=== PATIENT | male | born 1960 | race Caucasian/White ===

== ENCOUNTER 2019-08-31 13:36 | Inpatient (IN) | payer BC, MEDICAID ==
[~2019-08-31] VITALS: Ht 180.3 cm; Wt 70.0 kg
[2019-08-31 14:53] VITALS: Ht 180.3 cm; Wt 70.0 kg
--- NOTE | 2019-08-31 15:04 | NUR ---
59 YEAR OLD MALE PRESENTS WITH NAUSEA, NON BLOODY VOMITING AND DIARRHEA X 2 DAYS. PT REPORTS HE DRANK ETOH ON SATURDAY NIGHT AND FELT HIS SYMPTOMS THE NEXT DAY. HE REPORTS HE HAS BEEN NONCOMPLIANT WITH HIS DM MEDICATIONS FOR WEEKS. PT CURRENTLY DENIES ANY ABDOMINAL PAIN. PT IS CURRENTLY TACHYPNEIC AND ANXIOUS. HE IS AAOX4 AND IN MILD DISTRESS.
[2019-08-31 15:13] LABS: BASOPHIL % 0.1 % (0-2); PLATELET COUNT 236 x10^3mcL (130-400); RED CELL DISTRIBUTION WIDTH 13.6 % (11.5-14.5)
[2019-08-31 15:31] LABS: ALKALINE PHOSPHATASE 55 U/L (46-116); ALT/SGPT 39 U/L (16-63); AST/SGOT 12 U/L (15-37); BILIRUBIN TOTAL 1.2 mg/dL (0.20-1.00); CARBON DIOXIDE 12.9 mmol/L (21-32); CHLORIDE SERUM 97 mmol/L (98-107); GFR1 > 60 mL/min; GLUCOSE SERUM 234 mg/dL (74-106); LIPASE 88 IU/L (73-393); SODIUM SERUM 137 mmol/L (136-145); TOTAL PROTEIN, SERUM 8.1 g/dL (6.4-8.2)
[2019-08-31 15:35] LABS: CALCIUM 9.6 mg/dL (8.5-10.1)
[2019-08-31 16:31] LABS: MAGNESIUM 2.1 mg/dL (1.8-2.4); PHOSPHOROUS 3.3 mg/dL (2.5-4.9)
--- NOTE | 2019-08-31 16:39 | NUR ---
PT TAKEN TO CT VIA RKEVIN.
[2019-08-31 17:34] LABS: UA SPECIFIC GRAVITY 1.025 (1.005-1.035); microscopic required? YES; urine erythrocyte TRACE (NEGATIVE)
--- NOTE | 2019-08-31 17:37 | NUR ---
CALLED PHARMACY FOR POTASSIUM PHOSPHATE. ETA 15 MINS
--- NOTE | 2019-08-31 18:27 | NUR ---
REPORT GIVEN TO CHARGE NURSE LORIN. ICU TO ASSUME CARE OF PATIENT
[2019-08-31] MEDS ORDERED: STEGLATRO5 MG PO (18:47)
[2019-08-31] MEDS ORDERED: FORTAMET500 M1 PO (18:47)
[2019-08-31 18:48] LABS: CHOLESTEROL/HDL RATIO 3.7
[2019-08-31 19:01] LABS: AMPHETAMINE QUAL UR NONE DETECTED (See below)
--- NOTE | 2019-08-31 20:00 | NUR ---
RECEIVED PT FROM ER VIA RLAKE HARMONY WITH NURSE AT BEDSIDE. PT IS AWAKE, ALERT, ORIENTED X4. SPEECH CLEAR. ABLE TO MAKE NEEDS KNOWN. DENIES PAIN OR DISCOMFORT. CHIEF C/O N/V/D WITH ELEVATED BS. KPHOS INFUSING AT THIS TIME AT 45ML/HR TO LAC. HISTORY ASSESSMENT OBTAINED FROM PT. ORIENTED PT TO ROOM AND SURROUNDINGS. LUNG SOUNDS CLEAR. NO RESPIRATORY DISTRESS NOTED. PT STATES HE IS A LITTLE ANXIOUS ABOUT HOSPITILAZTION, BUT BREATHING EASILY ON ROOM AIR. INTIAL ASSESSMENT COMPLETED. INSTRUCTED PT TO USE CALL LIGHT IF NEEDED. WILL CARRY OUT ALL NEW ORDERS AT THIS TIME.
[2019-08-31 20:02] LABS: CALCIUM 8.4 mg/dL (8.5-10.1); CARBON DIOXIDE 13.4 mmol/L (21-32); CHLORIDE SERUM 104 mmol/L (98-107); CREATININE SERUM 0.8 mg/dL (0.7-1.3); GFR1 > 60 mL/min; GLUCOSE SERUM 163 mg/dL (74-106); MAGNESIUM 1.9 mg/dL (1.8-2.4); PHOSPHOROUS 4.8 mg/dL (2.5-4.9); POTASSIUM SERUM 3.9 mmol/L (3.5-5.1); SODIUM SERUM 138 mmol/L (136-145)
[2019-08-31 20:40] VITALS: BP 125/63
--- NOTE | 2019-08-31 21:30 | NUR ---
NEW IV PLACED TO LFA, 20G FOR D5 1/2 NS AND INSULIN DRIP. D5 1/2 NS INFUSING AT 250ML/HR AND INSULIN DRIP STARTED AT 0.05 UNITS/KG/HR; 3.5 UNITS/HR. LAST BS IS 124. WILL CONTINUE TO MONITOR CLOSELY.
--- NOTE | 2019-08-31 23:30 | NUR ---
PT C/O NAUSEA, MEDICATED WITH ZOFRAN ORDERED. LATEST BS IS 106. INSULIN 3.5UNITS/HR. D5 1/2 NS AT 250ML/HR. KPHOS INFUSING AT 45ML/HR. EMPTIED 700 ML IN URINAL, YELLOW CLEAR. ALL NEEDS TENDED TO. WILL CONTINUE TO MONITOR CLOSELY.
[2019-09-01] VITALS (7 sets, daily range): BP systolic 104–121; BP diastolic 47–73
[2019-09-01 01:38] LABS: CALCIUM 7.6 mg/dL (8.5-10.1); CARBON DIOXIDE 15.7 mmol/L (21-32); CHLORIDE SERUM 107 mmol/L (98-107); CREATININE SERUM 0.7 mg/dL (0.7-1.3); GFR1 > 60 mL/min; GLUCOSE SERUM 131 mg/dL (74-106); MAGNESIUM 1.8 mg/dL (1.8-2.4); PHOSPHOROUS 4.4 mg/dL (2.5-4.9); POTASSIUM SERUM 3.5 mmol/L (3.5-5.1); SODIUM SERUM 138 mmol/L (136-145)
--- NOTE | 2019-09-01 02:55 | NUR ---
PT SLEEPING IN INTERVALS. BS CHECKS CONTINUE Q1H. IVF ONGOING AND UNCHANGED. ALL NEEDS TENDED TO. WILL CONTINUE TO MONITOR CLOSELY.
--- NOTE | 2019-09-01 03:35 | NUR ---
PT C/O NAUSEA, ZOFRAN GIVEN AT THIS TIME. SHIFT ASSESSMENT COMPLETED. ALL NEEDS TENDED TO. WILL CONTINUE TO MONITOR CLOSELY.
[2019-09-01 05:45] LABS: CALCIUM 7.5 mg/dL (8.5-10.1); CARBON DIOXIDE 19.2 mmol/L (21-32); CHLORIDE SERUM 106 mmol/L (98-107); CREATININE SERUM 0.6 mg/dL (0.7-1.3); GFR1 > 60 mL/min; GLUCOSE SERUM 134 mg/dL (74-106); MAGNESIUM 1.8 mg/dL (1.8-2.4); PHOSPHOROUS 2.9 mg/dL (2.5-4.9); POTASSIUM SERUM 3.1 mmol/L (3.5-5.1); SODIUM SERUM 137 mmol/L (136-145)
--- NOTE | 2019-09-01 05:45 | NUR ---
PT SLEEPING ON AND OFF THROUGH OUT THE NIGHT. NO DISTRESS NOTED. DENIES SOB. DENIES PAIN. PT STATES HE IS HUNGRY. PT REMAINS NPO. FLAGYL INFUSING WELL AT THIS TIME. D5 1/2 NS AT 250ML/HR. INSULIN DRIP REMAINS UNCHANGED AT 3.5 UNITS/HR. WILL CONTINUE TO MONITOR CLOSELY.
[2019-09-01 05:52] LABS: BASOPHIL % 0.2 % (0-2); PLATELET COUNT 204 x10^3mcL (130-400); RED CELL DISTRIBUTION WIDTH 13.5 % (11.5-14.5)
--- NOTE | 2019-09-01 06:50 | NUR ---
DR. HUGHES AT BEDSIDE WITH NEW ORDERS RECEIVED. ADVANCE DIET TOLERATED TO CLEAR LIQUID DIET. DECREASE D5 1/2 NS TO 150ML/HR. INSULIN DRIP REMAINS UNCHANGED. JELLO GIVEN AT THIS TIME. FSBS IS 118. ALL NEEDS TENDED TO. WILL ENDORSE TO INCOMING SHIFT.
[2019-09-01 07:24] LABS: BILIRUBIN DIRECT 0.1 mg/dL (0.0-0.2); BILIRUBIN TOTAL 0.5 mg/dL (0.20-1.00); TOTAL PROTEIN, SERUM 6.2 g/dL (6.4-8.2)
[2019-09-01 07:27] LABS: ALBUMIN 2.9 g/dL (3.4-5.0)
--- NOTE | 2019-09-01 07:47 | NUR ---
CANCELLATION REQUESTED FOR ECHOCARDIOGRAM
--- NOTE | 2019-09-01 08:45 | NUR ---
DR ABEL AT BEDSIDE TO ASSESS PATIENT. POC DISCUSSED BEDSIDE WITH ALL QUESTIONS AND CONCERNS ADDRESSED.
--- NOTE | 2019-09-01 09:00 | NUR ---
BS 97 INCREASED D5 1/2 NS FROM 150 TO 200ML/HR
[2019-09-01 09:14] LABS: CALCIUM 7.6 mg/dL (8.5-10.1); CARBON DIOXIDE 18.8 mmol/L (21-32); CHLORIDE SERUM 107 mmol/L (98-107); CREATININE SERUM 0.6 mg/dL (0.7-1.3); GFR1 > 60 mL/min; GLUCOSE SERUM 102 mg/dL (74-106); MAGNESIUM 1.7 mg/dL (1.8-2.4); SODIUM SERUM 136 mmol/L (136-145)
--- NOTE | 2019-09-01 09:15 | NUR ---
DR GASPAR AND RESIDENTS ROUNDING. PATIENT PROVIDED POC BEDSIDE WITH ALL QUESTIONS AND CONCERNS ADDRESSED.
[2019-09-01 09:16] LABS: POTASSIUM SERUM 2.8 mmol/L (3.5-5.1)
--- NOTE | 2019-09-01 09:30 | NUR ---
DR GASPAR/[place] AT BS . INFORMED PT OF PLAN OF CARE. PT COOPERATIVE WITH PLAN. CRITICAL LAB K2.8 DR GOFF MADE AWARE. BS COMODE UTILIZED FLATULENCE ONLY. ALL NEEDS MET.
--- NOTE | 2019-09-01 10:17 | NUR ---
pt received from vessel welder rn. 0 distress noted. on RA. pt attempting to eat clear liq diet, brad well, no nv/abd pain. safety precautions reinforced . all needs met.
--- NOTE | 2019-09-01 11:53 | NUR ---
DR GOFF PAGED REGARDING LANTUS ORDERED ONE TIME DOSE 14U NOW, INFORMED HER OF MOST RECENT BLOOD SUGAR CHECKS. PER DR GOFF OKAY TO HOLD/CANCEL ONE TIME LANTUS ORDER AND INITIATE LANTUS TONIGHT. PHARMACY KAYA MADE AWARE.
--- NOTE | 2019-09-01 12:56 | NUR ---
PT C/O NV . PRN ZOFRAN ADMIN IVP PER MD ORDER. CONT TO MONITER. ALL NEEDS MET.
--- NOTE | 2019-09-01 14:50 | NUR ---
PATIENT REPORTS RELIEF WITH ZOFRAN BUT C/O PERSISTENT 'UPSET STOMACH' DENIES ABDOMINAL PAIN. DR GOFF MADE AWARE. PATIENT PLACED NPO. NEW LAB ORDERS ACKNOWLEDGED.
[2019-09-01 14:51] LABS: CALCIUM 7.9 mg/dL (8.5-10.1); CARBON DIOXIDE 19.5 mmol/L (21-32); CREATININE SERUM 0.7 mg/dL (0.7-1.3); GFR1 > 60 mL/min; GLUCOSE SERUM 159 mg/dL (74-106)
--- NOTE | 2019-09-01 14:54 | NUR ---
Nutrition education: Patient was lying in bed and resting during the first visit. Patient was arousable, but patient told RD to come back later for education. During the second visit, patient was sleeping. Written educations on diabetic diet and label reading for diabetic diet were left to patient's bedside.
[2019-09-01 15:03] LABS: POTASSIUM SERUM 3.5 mmol/L (3.5-5.1); SODIUM SERUM 135 mmol/L (136-145)
[2019-09-01 15:04] LABS: CHLORIDE SERUM 105 mmol/L (98-107)
--- NOTE | 2019-09-01 16:45 | NUR ---
RECEIVED TELE TRANSFER ORDER FOR PATIENT. WAITING FOR MST ROOM.
--- NOTE | 2019-09-01 18:19 | NUR ---
RECEIVED PT TRANSFERRED FROM ICU. PT AWAKE, ALERT A/OX4. PT ON ROOM AIR WITH NO RESP DISTRESS NOTED. PT WITH SOME CONGESTION NOTED, RUNNY NOSE. IV LAC, LFA, CDI INFUSING D5 1/2 NS AT 100ML/HR. PERIPHERAL PULSES PALPABLE, NO EDEMA NOTED. ACTIVE BS NOTED. DENIES ISSUES WITH ELIMINATION. PT AMBULATORY WITH GENERALIZED WEAKNESS NOTED. DENIES NAUSEA AT THIS TIME. PT ORIENTED TO ROOM. SAFETY MEASURES IN PLACE, BED LOW AND LOCKED. CALL LIGHT WITHIN REACH.
--- NOTE | 2019-09-01 18:45 | NUR ---
NS BOLUS NOT ADMINISTERED. PER ICU NURSE, THIS ORDER WAS FROM ER, PT ON D5 1/2NS AT 100ML/HR AT THIS TIME.
--- NOTE | 2019-09-01 19:15 | NUR ---
RECEIVED PT IN BED ASLEEP BUT EASILY AROUSABLE. HE IS ORIENTED X4. NO SOB NOTED ON ROOM AIR. HE HAS NO C/O ABDL PAIN. NO N/V AT THIS TIME. W/ HL TO LTAC AND LTFA. CALL LIGHT W/IN REACH.
--- NOTE | 2019-09-02 01:15 | NUR ---
PT APPEARS TO BE SLEEPING COMFORTABLY.
[2019-09-02 04:50] VITALS: BP 112/63
--- NOTE | 2019-09-02 05:03 | NUR ---
PT SLEPT THROUGH THE NIGHT. HE HAD NO C/O PAIN. NO EPISODE OF VOMITING. HE REMAINS ALERT AND ORIENTED X4. IVF D5 1/2 NS INFUSING WELL AT 100 CC/HR.
--- NOTE | 2019-09-02 05:12 | NUR ---
PT VOMITED SMALL AMOUNT. PT MEDICATED W/ ZOFRAN 4 MG IV.
[2019-09-02 06:10] LABS: BASOPHIL % 0.3 % (0-2); PLATELET COUNT 194 x10^3mcL (130-400); RED CELL DISTRIBUTION WIDTH 13.3 % (11.5-14.5)
--- NOTE | 2019-09-02 07:01 | NUR ---
PT SLEPT THROUGH THE NIGHT. HE HAD EPISODE OF VOMITING X1. HE HAD NO C/O PAIN. ACCUCHECK BS THIS AM IS 137. IVF D5 1/2 NS INFUSING WELL AT 100 CC/HR.
--- NOTE | 2019-09-02 07:10 | NUR ---
SEEN AOX4, NOT IN DISTRESS, TELE 12, NSR, PALPABLE PULSES, NO EDEMA, CTA ON BLF, +BS, NO N/V/DIARRHEA, VOIDS WITH NO DYSURIA, GENERALIZED WEAKNESS, FULL ROM, SKIN DRY AND INTACT,IV INTACT AND PATENT, NO REDNESS OR INFILTRATION. NO PAIN AT THIS TIME, CALL LIGHT WITHIN REACH. BED AT LOWEST POSITION.
[2019-09-02 07:27] LABS: CALCIUM 8.2 mg/dL (8.5-10.1); CARBON DIOXIDE 19.7 mmol/L (21-32); CHLORIDE SERUM 105 mmol/L (98-107); CREATININE SERUM 0.6 mg/dL (0.7-1.3); GFR1 > 60 mL/min; GLUCOSE SERUM 132 mg/dL (74-106); PHOSPHOROUS 2.1 mg/dL (2.5-4.9); POTASSIUM SERUM 3.3 mmol/L (3.5-5.1); SODIUM SERUM 138 mmol/L (136-145)
--- NOTE | 2019-09-02 08:22 | NUR ---
MEDICATIONS GIVEN PER EMAR
[2019-09-02] MEDS ORDERED: REGLAN10 M1 PO (10:17)
[2019-09-02] MEDS ORDERED: ZOF4 PO (10:20)
[2019-09-02] MEDS ORDERED: GLUMETZA500 MG PO (10:20)
[2019-09-02] MEDS ORDERED: LEVAQUIN500 M1 PO (10:21)
[2019-09-02] MEDS ORDERED: FLAGYL500 MG PO (10:22)
[2019-09-02] MEDS ORDERED: LANTI SQ (10:22)
[2019-09-02] MEDS ORDERED: GLUCOSE TEST S1 EACH MC (10:23)
[2019-09-02] MEDS ORDERED: 1ST TIER UNILE1 EAC1 MC (10:24)
--- NOTE | 2019-09-02 10:25 | NUR ---
[facility]
--- NOTE | 2019-09-02 11:07 | NUR ---
MEDICATIONS GIVEN PER EMAR. ACCUCHECK CBG 130.NO INSULIN REQUIRED.
--- NOTE | 2019-09-02 13:43 | NUR ---
CALLED PHARMACIST REGARDING FLAGYL NOT IN IV BIN. PER PHARMACIST, THEY WILL SEND IT IN NEXT ROUND.
--- NOTE | 2019-09-02 13:46 | NUR ---
PEPCID PO GIVEN FOR REFLUX SYMPTOMS.
--- NOTE | 2019-09-02 15:42 | NUR ---
MEDICATIONS GIVEN PER EMAR
[2019-09-02 16:07] VITALS: BP 146/77
--- NOTE | 2019-09-02 16:18 | NUR ---
MEDICATIONS GIVEN PER EMAR. ACCUCHECK DONE WITH CBG 119. NO INSULIN REQUIRED.
[2019-09-02 19:19] VITALS: BP 142/74
--- NOTE | 2019-09-02 19:30 | NUR ---
RECEIVED PT FROM DAY SHIFT RN. PT AAOX4, DENIES LEON/DIZZINESS. BREATHING EVEN AND UNLABORED ON RA WITH NO SOB NOTED. MED SURG PT DENIES CHEST PAIN/PRESSURE. IV LAC PATENT, SL. IV LFA PATENT INFUSING WELL WITH NO SIGNS OF INFILTRATION. PT AMBULATORY WITH BRP. ABD SOFT/ROUND, ACTIVE BOWEL SOUNDS, DENIES ABD PAIN/N/V/D. NO ACUTE DISTRESS NOTED. CALL BUTTON WITHIN REACH. SAFETY PRECAUTIONS IN PLACE. WILL CONTINUE TO MONITOR.
--- NOTE | 2019-09-03 02:10 | NUR ---
PATIENT RESTING, BREATHING EVEN/UNLABORED ON RA WITH NO SOB NOTED. IV PATENT, INFUSING WELL. NO ACUTE DISTRESS NOTED. CALL BUTTON WITHIN REACH. SAFETY PRECAUTIONS IN PLACE. WILL MONITOR.
[2019-09-03 05:07] VITALS: BP 111/63
[2019-09-03 06:23] LABS: BASOPHIL % 0.6 % (0-2); PLATELET COUNT 185 x10^3mcL (130-400); RED CELL DISTRIBUTION WIDTH 13.2 % (11.5-14.5)
--- NOTE | 2019-09-03 06:33 | NUR ---
PATIENT RESTING, NO SIGNS OF DISTRESS. BREATHING EVEN AND UNLABORED ON RA WITH NO SOB NOTED. IV PATENT, INFUSING WELL. PT AMBULATORY. DENIES N/V/D. NO ACUTE DISTRESS. MEDICATED PER EMAR. CALL BUTTON WITHIN REACH. SAFTY PRECAUTIONS IN PLACE. WILL CONTINUE TO MONITOR AND ENDORSE CARE TO DAY SHIFT RN.
[2019-09-03 07:01] LABS: CALCIUM 8.2 mg/dL (8.5-10.1); CARBON DIOXIDE 20.9 mmol/L (21-32); CHLORIDE SERUM 105 mmol/L (98-107); CREATININE SERUM 0.5 mg/dL (0.7-1.3); GFR1 > 60 mL/min; GLUCOSE SERUM 134 mg/dL (74-106); PHOSPHOROUS 2.3 mg/dL (2.5-4.9); POTASSIUM SERUM 3.2 mmol/L (3.5-5.1); SODIUM SERUM 139 mmol/L (136-145)
--- NOTE | 2019-09-03 07:20 | NUR ---
SEEN AOX4, NOT IN DISTRESS, MEDSURG, PALPABLE PULSES, NO EDEMA, CTA ON BLF, NO TENDERNESS , NO SOB, +BS, NO N/V AT THIS TIME, VOIDS WITH NO DYSURIA, NO WEAKNESS, FULL ROM, SKIN DRY AND INTACT, NO PAIN AT THIS TIME, IV INTACT AND PATENT TO LAC AND LFA, NO REDNESS OR INFILTRATION. CALL LIGHT WITHIN REACH. BED AT LOWEST POSITION. SIDE RAILS UP.
--- NOTE | 2019-09-03 07:34 | NUR ---
PT IN NO SIGNS OF DISTRESS. ENDORSED CARE, ALL QUESTIONS ADDRESSED.
[2019-09-03 07:53] VITALS: BP 138/83
--- NOTE | 2019-09-03 08:24 | NUR ---
K 3.2, KLOR CON PO GIVEN. CA 8.2 OSCAL PO GIVEN, P 2.3, PHOSNAK PO GIVEN. LEVOFLOXACIN INFUSING WELL AT 100CC/HR. NO REDNESS OR INFILTRATION. MEDICATIONS GIVEN PER EMAR.
--- NOTE | 2019-09-03 09:10 | NUR ---
DR GASPAR AND MEDICAL TEAM SEEN PATIENT. QUESTIONS ADDRESSED. PER DR GOFF, PATIENT MAY GO HOME AFTERNOON TODAY.
--- NOTE | 2019-09-03 10:07 | NUR ---
DR GOFF MADE AWARE OF DR ABEL'S PLAN TO DC ANTIBIOTICS IF BLOOD CULTURE CAME BACK NEGATIVE.
--- NOTE | 2019-09-03 10:40 | NUR ---
IRVIN LOPEZ GIVING DIABETIC TEACHING.
--- NOTE | 2019-09-03 11:23 | NUR ---
MEDICATIONS GIVEN PER EMAR. ACCUCHECK DONE WITH CBG 172. REG 3 UNITS SQ GIVEN.
[2019-09-03 12:35] VITALS: BP 138/83
--- NOTE | 2019-09-03 12:49 | NUR ---
DISCHARGE INSTRUCTIONS GIVEN. INSTRUCTED PATIENT TO TAKE PRESCRIPTION TO PREFERED PHARMACY AND GET MEDICATIONS FROM HIS PREFERED PHARMACY, TO FF UP WITH TELEHEALTH APPOINTMENT VIA [facility] ON August AT [address] TITUS, TO VISIT PCP AFTER 1 WEEK OF DISCHARGE, TO TAKE PRESCRIBED MEDICATIONS ORDERED. PATIENT VERBALIZED UNDERSTANDING OF INSTRUCTIONS. SIGNED DISCHARGE PAPERS AND PLACED IN CHART.
--- NOTE | 2019-09-03 13:20 | NUR ---
FLAGYL IVPB INFUSING WELL AT 100CC/HR. NO REDNESS OR INFILTRATION
--- NOTE | 2019-09-03 14:32 | NUR ---
IV REMOVED AT LAC, AND LFA. CATHETER INTACT. NO REDNESS OR INFILRATION.
--- NOTE | 2019-09-03 14:44 | NUR ---
DISCHARGED PER WHEELCHAIR, ACCOMPANIED BY SELF.
== END 2019-09-03 14:37 | disposition home or self-care (01) | DRG 638 ==
LOC: ED 13:36 → DU 18:06 → IC 18:06 → MU 18:06 → IC 18:21 → DU 09-01 18:03 → MU 09-02 10:50
PROVIDERS: Emergency Medicine; Family Medicine; ADMIT Internal Medicine
DX: E11.10 Type 2 diabetes mellitus with ketoacidosis without coma (principal); A08.39 Other viral enteritis; K56.7 Ileus, unspecified; E87.2 Acidosis; E11.43 Type 2 diabetes mellitus with diabetic autonomic (poly)neuropathy; E83.51 Hypocalcemia; I48.91 Unspecified atrial fibrillation; F12.10 Cannabis abuse, uncomplicated; E87.6 Hypokalemia; E80.6 Other disorders of bilirubin metabolism; K31.84 Gastroparesis; E83.39 Other disorders of phosphorus metabolism; E87.8 Other disorders of electrolyte and fluid balance, not elsewhere classified; Z68.23 Body mass index [BMI] 23.0-23.9, adult; Z87.891 Personal history of nicotine dependence; Z79.84 Long term (current) use of oral hypoglycemic drugs
CPT/HCPCS: 82962; 87046; 87046-59; C9113; G0378; J1815; J1956; J2270; J2405; J2765; J3480; J3490; J7030; Q0092; Q9967